=== PATIENT | male | born 1965 | race Caucasian/White ===

== ENCOUNTER 2017-05-08 04:49 | Emergency (ER) | payer SELFPAY ==
[2017-05-08 05:11] VITALS: BP 154/85
[2017-05-08] MEDS ORDERED: ASPIRIN PO ONE (05:11)
[2017-05-08] MEDS ORDERED: BABY ASPIRIN ONE (05:21)
[2017-05-08] MEDS ORDERED: BABY ASPIRIN PO ONE (05:28)
[2017-05-08 07:12] LABS: Bilirubin,Urine NEG (Negative); Blood,Urine NEG (Negative); Color,Urine Yellow (Yellow); Mucus,Urine FEW /HPF; Nitrite,Urine NEG (Negative); Protein,Urine <15 mg/dL mg/dL (Negative); Urobilinogen,Urine < 2.0 mg/dL (<2.0)
== END 2017-05-08 05:31 | disposition left against medical advice (07) ==
LOC: ED 04:49
DX: R07.9 Chest pain, unspecified (principal); Z53.21 Procedure and treatment not carried out due to patient leaving prior to being seen by health care provider
CPT/HCPCS: 81001; 93005; 93010